=== PATIENT | female | born 1965 | race Caucasian/White ===

== ENCOUNTER 2017-09-14 14:18 | Day surgery (SDC) | payer BC ==
[~2017-09-14] VITALS: Ht 170.2 cm; Wt 133.4 kg
[~2017-09-14 14:18] MED LIST: ALBU90I INH; ALBU90OI INH; ATEN25 PO; AZIT250 PO; BIRTH CONTROL; BIRTH CONTROL PO; CETI5 PO; CODACE30 PO; CYCL10 PO; EPIN.3I IM; FLUO10 PO; GLUC500 PO; OXYACE5T PO; PRED20 PO; PROP10 PO; RXCYCL10 PO; RXOXYACE PO
[2017-09-14] MEDS ORDERED: NAPR500 (14:36)
== END 2017-09-14 15:40 | disposition home or self-care (01) ==
LOC: ORSCSDS 14:18
PROVIDERS: Anesthesiology
PROC: 3E0R33Z Introduction of Anti-inflammatory into Spinal Canal, Percutaneous Approach (ICD-10-PCS; principal; 2017-09-14 15:30)
DX: M51.16 Intervertebral disc disorders with radiculopathy, lumbar region (principal); I10 Essential (primary) hypertension; E66.01 Morbid (severe) obesity due to excess calories; Z68.42 Body mass index [BMI] 45.0-49.9, adult; Z79.899 Other long term (current) drug therapy
CPT/HCPCS: J1040

== ENCOUNTER → 2019-04-19 | Outpatient (CLI) | payer SELFPAY ==
[~2019-04-19] MED LIST changes: +NAPR500
== END | disposition home or self-care (01) ==
LOC: LAB SHORT 18:14 → LAB 18:14
DX: R30.0 Dysuria (principal)
CPT/HCPCS: 87077; 87086; 87186

== ENCOUNTER → 2021-12-03 | Outpatient (CLI) | payer OTHER | END | disposition home or self-care (01) | LOC: LAB SHORT 09:00 | DX: M25.50 Pain in unspecified joint (principal); L65.9 Nonscarring hair loss, unspecified | CPT/HCPCS: 84443; 85651; 86430 ==

== ENCOUNTER → 2024-06-13 | Outpatient (CLI) | payer OTHER ==
[2024-06-19 06:55] LABS: HPV HIGH RISK BY TMA Not Detected; HPV SOURCE Cervical
== END | disposition home or self-care (01) ==
LOC: LAB SHORT 14:22 → LAB 14:22
PROVIDERS: Obstetrics & Gynecology
DX: Z12.4 Encounter for screening for malignant neoplasm of cervix (principal)
CPT/HCPCS: 87624; G0123